=== PATIENT | female | born 1950 | race Two or more races ===

== ENCOUNTER 2022-08-07 06:32 | Day surgery (SDC) | payer OTHER ==
[~2022-08-07] VITALS: Ht 154.9 cm; Wt 49.4 kg
== END 2022-08-07 17:20 | disposition home or self-care (01) ==
LOC: CIR.AMB 06:32
PROVIDERS: ATTEND Surgery
DX: D05.12 Intraductal carcinoma in situ of left breast (principal); N60.21 Fibroadenosis of right breast; N60.81 Other benign mammary dysplasias of right breast; N60.22 Fibroadenosis of left breast; R59.0 Localized enlarged lymph nodes; R92.1 Mammographic calcification found on diagnostic imaging of breast; Z20.822 Contact with and (suspected) exposure to COVID-19; F17.210 Nicotine dependence, cigarettes, uncomplicated
CPT/HCPCS: 19301; 38525; 38792; 19281; 19282; A9541; L8699